=== PATIENT | female | born 1965 | race Two or more races ===

== ENCOUNTER 2017-04-03 18:34 | Emergency (ER) | payer SELFPAY ==
--- NOTE | 2017-04-03 19:13 | PHYS DOC ---
Past Medical History Past Medical History: No Pertinent History Past Surgical History: No Surgical History Alcohol Use: None Drug Use: None Adult General Chief Complaint Chief Complaint: DIZZY/LIGHT HEADED HPI HPI Patient is a 51 year old female who presents with is this and a posterior headache for the past week. Patient states the dizziness is episodic and worse when she stands up and feels like the room is spinning. Patient has had nausea however no vomiting. Patient denies any chest pain or shortness of breath. Patient denies any abdominal pain. Pt denies any deficits in the extremities. She has no other complaints. Patient states this does not happen to her before. Pertinent exam findings: Cranial nerves II through XII are grossly intact no focal neurological deficits Heart is regular rhythm without murmurs Lungs are clear to all auscultation bilateral without crackles wheezes or rales ED course: He did seem evaluated in the emergency room, CBC CMP EKG UA CT angiogram head and neck were ordered 1847: Normal sinus rhythm rate of 79 no STEMI 2004: She ambulated to the bathroom without any difficulties 2036: Patient states she feels much better, headache is still present however improved greatly and the dizziness has resolved. 2053: Explain CT results with the patient who states she is ready to go home and feels much better. Recommend patient follow up with PCP in one to 2 days returns it worse. Pertinent exam findings: EKG shows no STEMI Significant other abnormalities on labs CTA of the head and neck unremarkable for any acute abnormalities MDM: After reviewing the chart, CC/HPI/PMH, physical exam, [lab results], [ radiological results], I do not believe the patient has acute intracranial process warranting further workup and admission at this time. Based on the patient's physical exam and history of present illness I have a low suspicion for intracranial hemorrhage and do not think an LP is warranted at this time. Since the dizziness is episodic and positional and not constant I have a low suspicion for central cranial process like a cerebellar infarct. On reexamination the patient has improved and is able to walk without any difficulty and would like to go home. I believe patient is stable for discharge. Additional verbal discharge instructions were provided to the patient and that if symptoms get worse or any new symptoms arise that are worrisome to the patient she is to return to the emergency room immediately Review of Systems Review of Systems Constitutional: Denies fever or chills [] Eyes: Denies change in visual acuity, redness, or eye pain [] HENT: Denies nasal congestion or sore throat [] Respiratory: Denies cough or shortness of breath [] Cardiovascular: No additional information not addressed in HPI [] GI: Denies abdominal pain, nausea, vomiting, bloody stools or diarrhea [] : Denies dysuria or hematuria [] Musculoskeletal: Denies back pain or joint pain [] Integument: Denies rash or skin lesions [] Neurologic: Dizziness and headache Current Medications Current Medications Current Medications Medications (Trade) Dose Ordered Sig/Berenice Start Time Stop Time Status Last Admin Dose Admin Info (Do NOT chart on this entry -- for MONITORING) 1 each PRN DAILY PRN 04/03/17 19:45 04/05/17 19:44 Iohexol (Omnipaque 350 Mg/ml) 75 ml 1X ONCE 04/03/17 19:45 04/03/17 19:46 DC 04/03/17 19:56 75 ML Meclizine HCl (Antivert) 25 mg 1X ONCE 04/03/17 20:15 04/03/17 20:16 DC 04/03/17 20:38 25 MG Sodium Chloride 1,000 ml @ 1,000 mls/hr 1X ONCE 04/03/17 19:15 04/03/17 20:14 DC 04/03/17 19:18 1,000 MLS/HR Allergies Allergies Allergies Coded Allergies Type Severity Reaction Last Updated Verified No Known Drug Allergies 04/03/17 No Physical Exam Physical Exam Constitutional: Well developed, well nourished, no acute distress, non-toxic appearance. [] HENT: Normocephalic, atraumatic, bilateral external ears normal, oropharynx moist, no oral exudates, nose normal. [] Eyes: PERRLA, EOMI, conjunctiva normal, no discharge. [] Neck: Normal range of motion, no tenderness, supple, no stridor. [] Cardiovascular:Heart rate regular rhythm, no murmur [] Lungs & Thorax: Bilateral breath sounds clear to auscultation [] Abdomen: Bowel sounds normal, soft, no tenderness, no masses, no pulsatile masses. [] Skin: Warm, dry, no erythema, no rash. [] Back: No tenderness, no CVA tenderness. [] Extremities: No tenderness, no cyanosis, no clubbing, ROM intact, no edema. [] Neurologic: Alert and oriented X 3, normal motor function, normal sensory function, no focal deficits noted. [] Psychologic: Affect normal, judgement normal, mood normal. [] Current Patient Data Vital Signs Vital Signs Date Time Temp Pulse Resp B/P (MAP) Pulse Ox O2 Delivery O2 Flow Rate FiO2 04/03/17 18:41 98.2 86 20 164/85 (111) 99 Room Air 98.2 Lab Values Laboratory Tests Test 04/03/17 19:10 04/03/17 19:15 White Blood Count 5.6 x10^3/uL (4.0-11.0) Red Blood Count 4.72 x10^6/uL (3.50-5.40) Hemoglobin 14.0 g/dL (12.0-15.5) Hematocrit 41.0 % (36.0-47.0) Mean Corpuscular Volume 87 fL (79-100) Mean Corpuscular Hemoglobin 30 pg (25-35) Mean Corpuscular Hemoglobin Concent 34 g/dL (31-37) Red Cell Distribution Width 12.9 % (11.5-14.5) Platelet Count 195 x10^3/uL (140-400) Neutrophils (%) (Auto) 64 % (31-73) Lymphocytes (%) (Auto) 27 % (24-48) Monocytes (%) (Auto) 6 % (0-9) Eosinophils (%) (Auto) 2 % (0-3) Basophils (%) (Auto) 1 % (0-3) Neutrophils # (Auto) 3.6 x10^3uL (1.8-7.7) Lymphocytes # (Auto) 1.5 x10^3/uL (1.0-4.8) Monocytes # (Auto) 0.3 x10^3/uL (0.0-1.1) Eosinophils # (Auto) 0.1 x10^3/uL (0.0-0.7) Basophils # (Auto) 0.0 x10^3/uL (0.0-0.2) Sodium Level 142 mmol/L (136-145) Potassium Level 3.9 mmol/L (3.5-5.1) Chloride Level 106 mmol/L (98-107) Carbon Dioxide Level 25 mmol/L (21-32) Anion Gap 11 (6-14) Blood Urea Nitrogen 13 mg/dL (7-20) Creatinine 0.8 mg/dL (0.6-1.0) Estimated GFR (Cockcroft-Gault) 75.0 BUN/Creatinine Ratio 16 (6-20) Glucose Level 101 mg/dL (70-99) H Calcium Level 8.8 mg/dL (8.5-10.1) Total Bilirubin 0.9 mg/dL (0.2-1.0) Aspartate Amino Transferase (AST) 22 U/L (15-37) Alanine Aminotransferase (ALT) 27 U/L (14-59) Alkaline Phosphatase 152 U/L (46-116) H Total Protein 7.3 g/dL (6.4-8.2) Albumin 3.6 g/dL (3.4-5.0) Albumin/Globulin Ratio 1.0 (1.0-1.7) Urine Collection Type Unknown Urine Color Yellow Urine Clarity Clear Urine pH 7.0 Urine Specific [place] 1.010 Urine Protein Negative mg/dL (NEG-TRACE) Urine Glucose (UA) Negative mg/dL (NEG) Urine Ketones (Stick) Negative mg/dL (NEG) Urine Blood Small (NEG) Urine Nitrite Negative (NEG) Urine Bilirubin Negative (NEG) Urine Urobilinogen Dipstick 1.0 mg/dL (0.2 mg/dL) Urine Leukocyte Esterase Large (NEG) Urine RBC 11-20 /HPF (0-2) Urine WBC 11-20 /HPF (0-4) Urine Squamous Epithelial Cells Mod /LPF Urine Bacteria 0 /HPF (0-FEW) Urine Mucus Slight /LPF Laboratory Tests 04/03/17 19:10 Laboratory Tests 04/03/17 19:10 EKG EKG Normal sinus rhythm rate of 79 no STEMI [] Radiology/Procedures Radiology/Procedures CTA head and neck: CT arteriogram of the carotid arteries was done using 75 mL Omnipaque 350 contrast. The visualized portions of the lungs are free of infiltrates. The origins of the great vessels at the aortic arch are poorly seen due to artifacts of the contrast vessels are grossly patent. The common carotid arteries are patent on each side without stenosis. There is minimal intimal thickening at the carotid bifurcation on each side without stenosis. The internal carotid arteries are tortuous without stenosis. Thyroid is homogeneous. The spine is in normal alignment. Vertebral arteries are of normal size and both supply flow to the basilar artery. IMPRESSION: 1. No stenosis noted in the carotid arteries 2. normal size vertebral arteries. PQRS Compliance Statement - Stenosis calculations for CT angiography are based upon measurement of the distal ICA diameter in accordance with the NASCET methodology. . End impression CT arteriogram of the brain CT arteriogram of the brain was done following the CT arteriogram of the carotid arteries with the same contrast. Sagittal and coronal MIP images and three-dimensional images were reconstructed. Basilar artery is normal without stenosis. Both posterior cerebral arteries have their origin from the basilar artery. There is a posterior communicating artery on the right. Posterior cerebral arteries are patent. The intracranial internal carotid arteries are patent without stenosis. A 1 segments of the anterior cerebral arteries are normal. There is normal anterior communicating artery. Anterior cerebral arteries are patent. Middle cerebral arteries appear patent on each side. Is no aneurysm at the [place]. Major intracranial veins are patent. There is no pathologic enhancement noted. Intervals are normal in size. IMPRESSION: 1. No major vessel occlusion noted or intracranial hemorrhage. 2. No pathologic enhancement or mass noted. [] Course & Med Decision Making Course & Med Decision Making Pertinent Labs and Imaging studies reviewed. (See chart for details) [] Dragon Disclaimer Dragon Disclaimer This electronic medical record was generated, in whole or in part, using a voice recognition dictation system. Departure Departure Impression: Primary Impression: Dizziness Additional Impression: Headache Disposition: 01 HOME, SELF-CARE Condition: IMPROVED Referrals: NO PCP (PCP) Patient Instructions: Dizziness, [id number], General Headache Without Cause Additional Instructions: Please follow up with her PCP in one to 2 days Problem Qualifiers Additional Impression: Headache Headache type: unspecified Headache chronicity pattern: acute headache Intractability: not intractable Qualified Codes: R51 - Headache DANAY COCHRAN DO April 03, 2017 19:13
[2017-04-03] MEDS ORDERED: IV NORMAL SALINE 1000ML BAG 1,000 ML IV ONE (19:15)
[2017-04-03 19:20] LABS: BASO % 1 % (0-3); EOS % 2 % (0-3); LYMPH # 1.5 x10^3/uL (1.0-4.8); LYMPH % 27 % (24-48); MEAN CORPUSCULAR HEMOGLOBIN 30 pg (25-35); MEAN CORPUSCULAR HGB CONC 34 g/dL (31-37); MEAN CORPUSCULAR VOLUME 87 fL (79-100); MONO % 6 % (0-9); NEUT % 64 % (31-73); PLATELET COUNT 195 x10^3/uL (140-400); RED BLOOD COUNT 4.72 x10^6/uL (3.50-5.40); RED CELL DISTRIBUTION WIDTH 12.9 % (11.5-14.5); WHITE BLOOD COUNT 5.6 x10^3/uL (4.0-11.0)
[2017-04-03 19:26] LABS: BILIRUBIN,URINE NEGATIVE (NEG); GLUCOSE,URINE NEGATIVE (NEG); NITRITE,URINE NEGATIVE (NEG); PROTEIN,URINE NEGATIVE (NEG-TRACE)
[2017-04-03 19:40] LABS: BACTERIA,URINE 0 /HPF (0-FEW); SQUAMOUS EPITHELIAL CELL,UR MOD /LPF
[2017-04-03 19:43] LABS: CALCIUM 8.8 mg/dL (8.5-10.1); CREATININE 0.8 mg/dL (0.6-1.0); POTASSIUM 3.9 mmol/L (3.5-5.1)
[2017-04-03] MEDS ORDERED: IOHEXOL 350 MG/ML 100 ML VIAL. IV ONE (19:45)
[2017-04-03] MEDS ORDERED: CONTRAST GIVEN MC PRN (19:45)
[2017-04-03 19:49] LABS: ALBUMIN 3.6 g/dL (3.4-5.0); TOTAL BILIRUBIN 0.9 mg/dL (0.2-1.0); TOTAL PROTEIN 7.3 g/dL (6.4-8.2)
[2017-04-03] MEDS ORDERED: MECLIZINE HCL 12.5 MG TABLET. PO ONE (20:15)
--- NOTE | 2017-04-03 20:43 | RAD ---
CT arteriogram of the carotid arteries, CT arteriogram of the brain. HISTORY: Posterior headache with dizziness CT arteriogram of the carotid arteries was done using 75 mL Omnipaque 350 contrast. The visualized portions of the lungs are free of infiltrates. The origins of the great vessels at the aortic arch are poorly seen due to artifacts of the contrast vessels are grossly patent. The common carotid arteries are patent on each side without stenosis. There is minimal intimal thickening at the carotid bifurcation on each side without stenosis. The internal carotid arteries are tortuous without stenosis. Thyroid is homogeneous. The spine is in normal alignment. Vertebral arteries are of normal size and both supply flow to the basilar artery. IMPRESSION: 1. No stenosis noted in the carotid arteries 2. normal size vertebral arteries. PQRS Compliance Statement - Stenosis calculations for CT angiography are based upon measurement of the distal ICA diameter in accordance with the NASCET methodology. . End impression CT arteriogram of the brain CT arteriogram of the brain was done following the CT arteriogram of the carotid arteries with the same contrast. Sagittal and coronal MIP images and three-dimensional images were reconstructed. Basilar artery is normal without stenosis. Both posterior cerebral arteries have their origin from the basilar artery. There is a posterior communicating artery on the right. Posterior cerebral arteries are patent. The intracranial internal carotid arteries are patent without stenosis. A 1 segments of the anterior cerebral arteries are normal. There is normal anterior communicating artery. Anterior cerebral arteries are patent. Middle cerebral arteries appear patent on each side. Is no aneurysm at the [place]. Major intracranial veins are patent. There is no pathologic enhancement noted. Intervals are normal in size. IMPRESSION: 1. No major vessel occlusion noted or intracranial hemorrhage. 2. No pathologic enhancement or mass noted. PQRS Compliance Statement: One or more of the following individualized dose reduction techniques were utilized for this examination: 1. Automated exposure control 2. Adjustment of the mA and/or kV according to patient size 3. Use of iterative reconstruction technique Electronically signed by: Ambrocio Gonzalez MD (04/03/2017 8:40 PM)
[2017-04-03 21:13] VITALS: BP 139/86
--- NOTE | 2017-04-04 07:10 | EKG ---
[facility] [address] [place] [address] Test Date: 2017-04-03 Test Time: 18:46:12 Pat Name: ELIZABETH FONTAINE Department: Room: Gender: F Steward/Stewardess Lounge: : 1965 Requested By: DANAY COCHRAN Order Number: [id number] Reading MD: Deondre Pearce Measurements Intervals [place] Rate: 79 P: 35 NC: 150 QRS: 66 QRSD: 74 T: 26 QT: 362 QTc: 416 Interpretive Statements SINUS RHYTHM Electronically Signed On 04-04-2017 10:44:24 CDT by Deondre Pearce
== END 2017-04-03 21:25 | disposition home or self-care (01) ==
LOC: ER 18:34
DX: R42 Dizziness and giddiness (principal); R51 Headache
CPT/HCPCS: 36415; 70496; 70498; 80053; 81001; 85027; 87086; 93005; 96360; 99285; J7030; J8597; Q9967